=== PATIENT | male | born 1995 | race Caucasian/White ===

== ENCOUNTER 2023-12-01 19:14 | Emergency (ER) | payer OTHER, SELFPAY ==
[2023-12-01 20:06] VITALS: BP 145/95; PULSE 74; RESP 16; TEMP 37.1; O2SAT 99
--- NOTE | 2023-12-01 20:15 | DI.RAD_ITS ---
Exam(s) XR ANKLE RT COMPLETE XR TIB/FIB RT EXAM: XR ANKLE RT COMPLETE CLINICAL HISTORY: lateral ankle pain, r/o fx. TECHNIQUE: 2D digital imaging was performed. Three views. COMPARISON: CR,XR XR TIB/FIB RT from 12/01/2023 FINDINGS: BONES: Oblique fracture through the lateral malleolus extending to the level of the ankle mortise. A pproximately 5 millimeters of displacement posteriorly. No medial malleolar fracture is seen. No ad ditional fractures seen more proximally in the tibia and fibula. No talar dome defect. No bony dest ructive lesion is seen. JOINTS: Widening of the medial ankle mortise. The knee is unremarkable as visualized. SOFT TISSUE: Marked soft tissue swelling around the lateral malleolus. IMPRESSION: Lateral malleolar fracture with widening of the medial ankle mortise. DATA REPOSITORY: RADIATION DOSE DELIVERED:
--- NOTE | 2023-12-01 20:28 | ED.GENADUL_ITS ---
Discharge Plan Disposition Patient Disposition: Home Discharge Details Clinical Impression: Fracture of right fibula Primary Care Provider: Cornelius Deng ED Provider: Fletcher Pritchard Home Meds and New Rx's Prescriptions: No Action albuterol sulfate 2.5 MG/3 ML solution for nebulization 1 vial Inhalation Q4H PRN Qty: 1 fluticasone propion-salmeterol [Advair HFA] 8 GM HFA aerosol inhaler 2 puff Inhalation BID Qty: 1 Rx Instructions: take 2 puffs with a spacer 2 times per day. fluticasone propionate 16 GM spray,suspension 2 spray NS DAILY Qty: 1 albuterol sulfate [ProAir HFA] 8.5 GM HFA aerosol inhaler 2 puff Inhalation Q4H PRN Qty: 1 loratadine 10 MG tablet 10 mg PO DAILY Qty: 30 Rx Instructions: take 1 tab daily epinephrine [EpiPen 2-Bhaskar] 0.3 MG/0.3 ML auto-injector 1 dose IM PRN Qty: 1 Discharge Instructions Instructions: Ankle Fracture (ED) Additional Instructions: At this time your fibula is fractured at the bottom component. There is a chance that this may need operative management. Please follow-up closely with orthopedics to have a repeat evaluation and x-ray. Please remain nonweightbearing for the next week, and then gradually apply minimal weight with your crutches. Please take 800 mg of Motrin every 6 hours and 1000 mg of Tylenol every 6 hours for the next 2 to 3 days. These are the maximum doses. Please continue to apply ice to the swollen and tender area to help with swelling. Keep it elevated as often as possible. If you notice any worsening of your symptoms, or any new symptoms such as vomiting, diarrhea, fever, chills, shortness of breath, chest pain, numbness, weakness, or fainting , please return immediately to the emergency department for reevaluation. Please follow up with your primary care provider as soon as possible for reassessment and reevaluation. As always, it was a pleasure participating in your medical care today. Stand Alone Forms: Work Release Referrals: Ammon Leslie MD [ [facility] STAFF PHYSICIAN] - Cornelius Deng [Primary Care Provider] - Desmond Islas MD [ [facility] STAFF PHYSICIAN] - Discharge Data Discharge Date/Time-TO BE ENTERED AT DEPARTURE: 12/01/23 22:19 Medical Decision Making 27-year-old male who the past medical history of reactive airway disease presents today for evaluation of right ankle pain. Patient was walking, slipped on his phone, heard a pop in his ankle and had immediate pain about 1 hour prior to arrival. He came to the ER for further assessment. Pain is made worse with movement. He admits to swelling. He denies numbness or tingling. Pain is localized in the right lateral ankle. It travels slightly proximally from there. No other complaints at this time. No other trauma or damage. Exam demonstrates a swollen lateral malleolus, pain with movement. Range of m otion limited secondary to pain. No numbness or tingling. Distal vascular exam demonstrates brisk capillary refill. Radial pulse +2 bilaterally, dorsalis pedis and posterior tibial pulse +2 bilaterally. Suspect fracture, will get x- ray, give Tylenol and Motrin. Apply ice. 3:06 AM X-ray demonstrates a distal fibular fracture. Walking boot was applied, crutches given. Recommendations for nonweightbearing for the next week, then gradual transition to light weightbearing. Will place referral with orthopedics for further outpatient management. Patient remains neurovascularly intact. Christopher l give recommendations for continued NSAIDs, ice, and elevation at home. Will give 4 tablets of a pain pill for use at home if needed. Discussed red flags for which to return. I have extensively reviewed the treatment plan and discharge instructions with the patient. I have addressed all patient concerns at this time. The patient was made aware of what symptoms to monitor for that would warrant a return to the emergency department. Discussed the plan with the patient, they demonstrate verbal understanding and agreement with our assessment and plan at this time. The documentation in this chart was dictated using Buddy dictation software. Please excuse any dictation errors. FINDINGS: Bones/joints: Acute minimally displaced oblique fracture through distal fibular shaft. No subluxation. Soft tissues: Soft tissue swelling is demonstrated posterolaterally about distal fibula. IMPRESSION: Acute fibular fracture. Thank you for allowing us to participate in the care of your patient. Dictated and Authenticated by: Suresh Huston DO 12/01/2023 9:26 PM Eastern Time ([place] & [place]) FINDINGS: Bones/joints: Acute fracture of distal fibula. Tibia is intact. No subluxation. Soft tissues: Soft tissue swelling posterolaterally about distal fibula. IMPRESSION: Acute fracture of distal fibula. Thank you for allowing us to participate in the care of your patient. Dictated and Authenticated by: Suresh Huston DO 12/01/2023 9:28 PM Eastern Time ([place] & [place]) HPI General Date/Time Provider Initiated Documentation: 12/01/23 20:25 . HPI Narrative: 27-year-old male who the past medical history of reactive airway disease presents today for evaluation of right ankle pain. Patient was walking, slipped on his phone, heard a pop in his ankle and had immediate pain about 1 hour prior to arrival. He came to the ER for further assessment. Pain is made worse with movement. He admits to swelling. He denies numbness or tingling. Pain is localized in the right lateral ankle. It travels slightly proximally from there. No other complaints at this time. No other trauma or damage. Related Data Home Medications Medication Instructions Recorded Confirmed albuterol sulfate 2.5 mg/3 mL 1 vial inhalation Q4H PRN ##1 04/19/14 (0.083 %) solution for nebulization fluticasone propionate 115 2 puff inhalation BID ##1 03/07/15 mcg-salmeterol 21 mcg/actuation HFA inhaler (Advair HFA) fluticasone propionate 50 2 spray NS DAILY #1 spray 04/21/15 mcg/actuation nasal spray,suspension albuterol sulfate 90 mcg/actuation 2 puff inhalation Q4H PRN ##1 06/02/15 aerosol inhaler (ProAir HFA) loratadine 10 mg tablet 10 mg PO DAILY #30 tab-caps 06/06/15 epinephrine 0.3 mg/0.3 mL 1 dose IM PRN ##1 07/18/15 injection, auto-injector (EpiPen 2-Bhaskar) Allergies Allergy/AdvReac Type Severity Reaction Status Date / Time peanut Allergy Unverified 01/23/16 11:25 General Stated Complaint: Orthopedic MATT: 3 Review of Systems All systems reviewed & are unremarkable except as noted in HPI and below PFSH All Active Problems (Updated 12/01/23 @ 22:14 by Fletcher Pritchard DO) Fracture of right fibula (Acute) Rib pain (Acute) Social History Smoking/Tobacco Use Status: Current-Occasional Smoking risk assessment performed?: Yes Alcohol Intake: current Alcohol Intake frequency: a few times a month Drug use: Occasionally Do you feel safe at home: Yes Do you feel safe in your relationship?: Yes Exam Narrative Exam Narrative: 1.Const: Well-nourished, Well-developed, appearing stated age 2.Eyes: PERRL, no conjunctival injection, and symmetrical lids. 3.ENT: Atraumatic external nose and ears. Moist MM. Neck: Symmetric, trachea midline, No thyromegaly. 4.CVS: +S1/S2, No murmurs or gallops. Peripheral pulses 2+ and equal in all extremities. Brisk capillary refill in all extremities. 5.RESP: Unlabored respiratory effort. Clear to auscultation bilaterally. No wheezes rales or rhonchi 6.GI: Soft, Nontender/Nondistended, No hepatosplenomegaly. No guarding or rebound. 7.MSK: Patient's right ankle demonstrates notable swelling and edema, tenderness over the lateral aspect. No tenderness over the medial aspect. No tenderness o scooter the arch of the foot at the calcaneus. Minimal referred pain down to the ankle with squeezing of the proximal and mid fibula. No tenderness over the knee. No calf tenderness 8.Skin: Warm, Dry. No rashes or lesions. 9.Neuro: vacuum system tester II-XII grossly intact. Sensation grossly intact, no focal neurologic deficits. 10.Psych: (AAO) x3. Appropriate mood and affect Course Vital Signs Vital signs: Vital Signs Temperature 37.1 C 12/01/23 20:06 Pulse 74 12/01/23 20:06 Respiratory Rate 16 12/01/23 20:06 Blood Pressure 145/95 H 12/01/23 20:06 Pulse Oximetry 99 12/01/23 20:06 Temperature 37.1 C 12/01/23 20:06 Pulse 74 12/01/23 20:06 Respiratory Rate 16 12/01/23 20:06 Respiratory Effort Normal 12/01/23 20:09 Blood Pressure 145/95 H 12/01/23 20:06 Blood Pressure Position Sitting 12/01/23 20:06 Pulse Oximetry 99 12/31/23 20:06 Oxygen Delivery Method Room Air 12/01/23 20:06 Oxygen Flow Rate 0 12/01/23 20:06 Pain Level 8 12/01/23 20:06 PAWSS Have you Been Recently Intoxicated or Drunk Within the Last 30 days?: No Result: 0
[2023-12-01] MEDS: Acetaminophen 500 MG TAB 1000 MG PO (20:38)
[2023-12-01] MEDS: Ibuprofen 800 MG TAB PO (20:39)
--- NOTE | 2023-12-01 21:27 | DI.VRAD_ITS ---
PROCEDURE INFORMATION: Exam: XR Right Ankle Exam date and time: 12/01/2023 8:58 PM Age: 27 years old Clinical indication: Right; Patient HX: RT ankle pain TECHNIQUE: Imaging protocol: Radiologic exam of the right ankle. Views: 3 or more views. COMPARISON: No relevant prior studies available. FINDINGS: Bones/joints: Acute minimally displaced oblique fracture through distal fibular shaft. No subluxation. Soft tissues: Soft tissue swelling is demonstrated posterolaterally about distal fibula. IMPRESSION: Acute fibular fracture. Dictated and Authenticated by: Suresh Huston MD. Ordering:PAUL Bynum MD
--- NOTE | 2023-12-01 21:28 | DI.VRAD_ITS ---
PROCEDURE INFORMATION: Exam: XR Right Tibia and Fibula Exam date and time: 12/01/2023 9:04 PM Age: 27 years old Clinical indication: Injury or trauma; Fall; Blunt trauma; Lower leg; Right; Injury date: 12/01/23 TECHNIQUE: Imaging protocol: Radiologic exam of the right tibia and fibula. Views: 2 views. COMPARISON: CR XR ANKLE RT COMPLETE 12/01/2023 8:58 PM FINDINGS: Bones/joints: Acute fracture of distal fibula. Tibia is intact. No subluxation. Soft tissues: Soft tissue swelling posterolaterally about distal fibula. IMPRESSION: Acute fracture of distal fibula. Dictated and Authenticated by: Suresh Huston MD. Ordering:PAUL Bynum MD
== END 2023-12-01 22:19 | disposition home or self-care (01) ==
PROVIDERS: Emergency Provider Student in an Organized Health Care Education/Training Program; PCP Family Medicine
DX: S82.64XA Nondisplaced fracture of lateral malleolus of right fibula, initial encounter for closed fracture (principal); R07.81 Pleurodynia; W18.41XA Slipping, tripping and stumbling without falling due to stepping on object, initial encounter
CPT/HCPCS: 27750; 73590; 73610

== ENCOUNTER 2023-12-05 09:00 | Day surgery (SDC) | payer OTHER, SELFPAY ==
[2023-12-05] VITALS (14 sets, daily range): BP systolic 111–168; BP diastolic 65–97; PULSE 59–78; RESP 13–23; TEMP 36–37; O2SAT 96–98; BMI 30.5
--- NOTE | 2023-12-05 07:31 | W.PM.DSUDISC ---
Date of service: 12/05/23 Time of Service: 14:30 Discharge Plan Disposition Patient Disposition: Home Condition: Stable Discharge Details Attending Provider: Ammon Leslie Primary Care Provider: Cornelius Deng Home Meds and New Rx's Prescriptions: New aspirin 81 mg tablet,delayed release (DR/EC) 81 mg PO DAILY 14 Days Qty: 14 0RF naproxen 250 mg tablet 250 - 500 mg PO BID PRN (Reason: Moderate pain) Qty: 40 0RF oxycodone 5 mg tablet 5 - 10 mg PO Q4H PRN (Reason: Moderate to severe pain) Qty: 9 0RF Continued triamcinolone acetonide 0.1 % cream 1 applic topical DAILY albuterol sulfate 2.5 MG/3 ML solution for nebulization 1 vial Inhalation Q4H PRN Qty: 1 fluticasone propion-salmeterol [Advair HFA] 8 GM HFA aerosol inhaler 2 puff Inhalation BID Qty: 1 Rx Instructions: take 2 puffs with a spacer 2 times per day. fluticasone propionate 16 GM spray,suspension 2 spray NS DAILY Qty: 1 albuterol sulfate [ProAir HFA] 8.5 GM HFA aerosol inhaler 2 puff Inhalation Q4H PRN Qty: 1 loratadine 10 MG tablet 10 mg PO DAILY Qty: 30 Rx Instructions: take 1 tab daily epinephrine [EpiPen 2-Bhaskar] 0.3 MG/0.3 ML auto-injector 1 dose IM PRN Qty: 1 Discharge Instructions Additional Instructions: Surgery: Right ankle open reduction internal fixation Activity: Nonweightbearing right ankle with crutches. May rest splint gently on ground while standing. Strict elevation to minimize swelling and discomfort. Wiggle toes to improve circulation and prevent stiffness. Physical therapy prescription will be provided on follow-up if needed. Prescriptions: Aspirin 81 mg take 1 daily to prevent a blood clot for 2 weeks Naproxen 250 mg take 1-2 every 12 hours with a meal as needed for moderate pain Oxycodone 5 mg take 1-2 every 4-6 hours as needed for severe pain You may use [id number] Tylenol (acetaminophen) as needed for mild pain. These pain medications may be taken all at once or in different combinations as needed. Also, recommend Colace (docusate) as a stool softener as surgery and pain medicine cause constipation. You may try [id number] diphenhydramine (Benadryl) 25-50 mg nightly as a sleep aid Dressings: Leave splint and dressing in place until follow-up. Keep clean and dry at all times. Follow-up: 10-[address] Leslie You may take off the leg compression stockings this evening at home. You may also leave them on a few days longer if you have a history of leg swelling or edema. Let us know right away if you develop any redness, drainage, fevers, chest pain, or trouble breathing. Do not drink alcohol or drive for at least 24 hours after anesthesia. Please call the office during business hours with any questions or concerns. Stand Alone Forms: Anesthesia Discharge Inst., Brian.Nerve Block Instructions, Parker Valadez (DSU), Use of Axillary Crutches Discharge Orders Discharge Orders: Discharge Order (Routine); Ordered 12/05/23 Ordered By: Trev Matamoros Discharge Data Discharge Date/Time-TO BE ENTERED AT DEPARTURE: 12/05/23 15:00 DS: Diagnosis Discharge Diagnosis (1) Closed fracture of right distal fibula: Status: Acute
--- NOTE | 2023-12-05 09:00 | DI.RAD_ITS ---
Exam(s) XR ANKLE RT 2V EXAM: XR ANKLE RT 2V CLINICAL HISTORY: right ankle fracture TECHNIQUE: 2D and realtime digital imaging was performed. CONTRAST MATERIAL: Refer to procedure report. COMPARISON: CR,XR XR ANKLE RT COMPLETE from 12/01/2023 FINDINGS: Fluoroscopy was provided for Dr. Leslie during the performance of a reduction and internal fixation of the distal right fibular fracture. Please refer to the procedure report for complete details. Ka,r=0.38 mGy IMPRESSION: RADIATION DOSE DELIVERED:
--- NOTE | 2023-12-05 09:25 | ROE_ITS ---
Date of service: 12/05/23 Time of Service: 10:00 Operative Note Operative Note DATE OF PROCEDURE: 12/05/23 PRE-OP DIAGNOSIS: Right ankle fracture POST-OP DIAGNOSIS: same PROCEDURE: Right ankle ORIF, distal fibula, CPT #01870 SURGEON: Ammon Leslie SUPERVISOR PURIFICATION: Trev Matamoros ANESTHESIA TYPE: Local By Surgeon, General LMA/ETT and Primary Nerve Block Refer to Anesthesia Record ESTIMATED BLOOD LOSS: 10 TOURNIQUET TIME: 0 COMPLICATIONS: None Patient was transported to: PACU Patient's condition: stable Implants: Synthes 8-hole 1/3 tubular plate with 3x proximal 3.5mm cortex screw, 3x distal 4.0mm cancellous screws, and 1x 3.5mm lag screw Indications: Please see complete medical record for details. Procedure Description: In the operating room, general anesthesia was induced. The patient was positioned supine on the operating room table. All bony prominences were well- padded. Preoperative antibiotics were administered. The right ankle was prepped and draped in the usual sterile fashion. The correct patient, proc edure, and side of the procedure were all verified prior to incision. The distal fibular fracture was localized and the lateral incision preinjected with 30 cc 0.25% bupivacaine with epinephrine. Stress view was obtained and only demonstrated mild lateral talar shift. The direct lateral approach the distal fibula was used taking care to protect soft tissues, retract neurovascular structures and tendons away from the bone. The fracture site was readily encountered, exaggerated, and debrided of clot material. Length and rotation were then obtained grossly and with bone clamps. The fracture was confirmed to be well reduced using fracture cruz posterior superiorly and anteriorly inferiorly. Periosteum was bluntly elevated about the lateral fibula for planned plate placement. An appropriate length plate was selected to accommodate fixation proximally and distally to the oblique fracture. Bone clamps were then adjusted to allow for central anterior to posterior lag screw, which was drilled bicortically, glide hole, and screw placed with good fixation strength. Plate was then contoured to match patient anatomy, applied to the lateral fibula, secured proximal to the fracture with a 3.5 mm bicortical cortex screw, slightly rotated to the best position, this screw tightening, and then secured distally with a 4.0 mm just short of bicortical cancellous screw. The remaining distal screws were predrilled just penetrated the far cortex but not into the talus and then filled with 4.0 mm cancellous screws. The remaining 2 proximal screws were predrilled bicortically and filled with 3.5 mm cortex screws with the most proximal screw diverging from the construct and working length prevent stress riser. Fluoroscopic images showed appropriate ankle reduction hardware placement. External rotation stress view were negative for instability. The fixation was solid about the fracture. The wound was copiously irrigated normal saline. Soft tissues were allowed to retract over the hardware. Subcutaneous tissue was closed with 2-0 Monocryl buried interrupted. Skin was closed using 3-0 nylon horizontal mattresses. Xeroform applied over the incision followed by gauze and ABD and the ankle wrapped in sterile Sof-Rol. A short leg AO plaster splint was then applied to the extremity maintaining the foot and ankle in neutral position. The patient awoke from anesthesia without complication and was transferred to the recovery room in a stable condition.
--- NOTE | 2023-12-05 09:42 | W.ANESPRE ---
General Info Date of Service Date Performed: 12/05/23 Height: 5 ft 10.5 in Weight: 98 kg Body Mass Index (BMI): 30.5 Surgical Procedure: Operation Date: 12/05/23 09:10 Proposed Procedure Side Surgeon p Ankle ORIF Right Ammon Leslie MD Meds Allergies and Home Medications Allergies Allergy/AdvReac Type Severity Reaction Status Date / Time peanut Allergy Severe Anaphylaxis Unverified 12/05/23 09:25 shellfish derived AdvReac Hives Unverified 12/05/23 09:28 Home Medication Medication Instructions Recorded albuterol sulfate 2.5 mg/3 mL 1 vial inhalation Q4H PRN ##1 04/19/14 (0.083 %) solution for nebulization fluticasone propionate 115 2 puff inhalation BID ##1 03/07/15 mcg-salmeterol 21 mcg/actuation HFA inhaler (Advair HFA) fluticasone propionate 50 2 spray NS DAILY #1 spray 04/21/15 mcg/actuation nasal spray,suspension albuterol sulfate 90 mcg/actuation 2 puff inhalation Q4H PRN ##1 06/02/15 aerosol inhaler (ProAir HFA) loratadine 10 mg tablet 10 mg PO DAILY #30 tab-caps 06/06/15 epinephrine 0.3 mg/0.3 mL 1 dose IM PRN ##1 07/18/15 injection, auto-injector (EpiPen 2-Bhaskar) triamcinolone acetonide 0.1 % 1 applic topical DAILY 12/03/23 topical cream Current Visit Medications: Current Medications Generic Name Dose Route Start Last Admin Trade Name Freq PRN Reason Stop Dose Admin Ringer's Solution 1,000 mls @ 30 mls/hr 12/05/23 06:00 IV 12/05/23 23:59 INFUSION GILMER Cefazolin Sodium/Dextrose 2 gm in 50 mls @ 100 mls/hr 12/05/23 06:00 Ancef Duplex IVPB 12/05/23 23:59 PREOP GILMER IV Miscellaneous Supplies 1 each 12/05/23 06:00 Iv Access IV 12/05/23 23:59 DIRECTED GILMER Oxycodone HCl 0 mg 12/05/23 07:31 Oxycodone 5 Mg Tab PO 01/04/24 07:30 Q3H PRN PRN Pain Sodium Chloride 0 ml 12/05/23 06:00 Normal Saline Flush 10 Ml Syr IV 12/05/23 23:59 PRN PRN Sodium Chloride 0 ml 12/05/23 06:00 Normal Saline 10 Ml Vial IJ 12/05/23 23:59 DIRECTED PRN Sterile Water 0 ml 12/05/23 06:00 Water,Injection,Sterile 10 Ml Vial IJ 12/05/23 23:59 DIRECTED PRN PFSH Active Problems Active Problems: Problem Status Onset Code Closed fracture of right distal fibula 12/01/23 S82.831A Rib pain R07.81 Medical History Medical History (Updated 12/04/23 @ 12:20 by Ahmet Cool) Environmental allergies Asthma Surgical History Surgical History (Updated 12/04/23 @ 12:20 by Ahmet Cool) Hx of cholecystectomy History of nasal surgery Nasal polyps removed Tobacco Smoking/Tobacco Use Status: Never Alcohol Alcohol Intake: current Alcohol intake frequency: a few times a month Substance Use Substance use: Socially Substance use type: marijuana Vital Signs and Lab Results Vital Signs Most Recent Vital Signs in EMR: Most Recent Vital Signs Temp Pulse Resp BP Pulse Ox 36 C L 78 18 156/92 H 98 12/05/23 09:30 12/05/23 09:30 12/05/23 09:30 12/05/23 09:30 12/05/23 09:30 Lab Results Blood Type / Crossmatch: No Data to Display Complete Blood Count: No Data to Display Complete Metabolic Panel: No Data to Display Liver Function Panel: No Data to Display Coagulation Panel: No Data to Display Cardiac Panel: No Data to Display Arterial Blood Gas: No Data to Display Venous Blood Gas: No Data to Display Pancreas Panel: No Data to Display Thyroid Panel: No Data to Display Infectious Disease: No Data to Display Blood Cultures: No Data to Display Toxicology Panel: No Data to Display Anesthesia Assessment and Plan Anesthesia History Personal History: No History of Anesthesia Complications Family History: No Family History of Anesthesia Complications Exercise Tolerance Exercise Tolerance: Metabolic Equivalents>4 Pertinent Negatives Pertinent Negatives: No Symptoms of GERD and No Major Cardiovascular Symptoms or Complaints Cardiac & Pulmonary Exam Cardiac Exam: Normal S1/S2 Heart Sounds Pulmonary Exam: Clear Bilateral Breath Sounds Implantable Cardiac Device Does patient have a Pacemaker or an ICD?: No Airway Exam Known Difficult Airway: No Mallampati Class: 1 Mouth Opening: Normal (> 3cm) Thyromental Distance: Greater than 3 cm Neck Range of Motion: Full ROM Neck Circumference: Normal Teeth Condition: Normal Dentition ASA Classification ASA Score: ASA 2 Emergency Case?: No NPO Status NPO Status: NPO Clears >2 hours, Solids >8 hours Anesthesia Plan Resuscitation Status: Full Code Anesthesia Technique: General Anesthesia Airway Planned: LMA Pain Management: Surgeon and patient request nerve block Monitors Used: Standard Monitors Preoperative Comments:: Right eye is quite red in Oreos. States he slept poorly and has been rubbing eye.
[2023-12-05] MEDS: Lactated Ringers 1,000 ML 30 ML IV (10:15)
[2023-12-05] MEDS: ceFAZolin 2 GM/50 ML BAG IVPB (10:19)
--- NOTE | 2023-12-05 10:51 | W.ANESNERVE ---
Nerve Block Single Injection Procedure Date and Time Date Performed: 12/05/23 Procedure Start: 10:02 Location Where Procedure Performed Procedure Location: Day Surgery Unit Reason Performed: Postoperative Analgesia Requesting Provider: Ammon Leslie Timeout Performed Timeout Performed: Yes Monitoring Used ECG, Blood Pressure, SpO2 and See EMR for corresponding vital signs Sterility Sterility: Hand Hygiene, Surgical Cap, Surgical Mask, Sterile Gloves and Chlorhexidine Sedation Given During Procedure Sedation Given (Indicate Dose Given): Versed IV Dose:: 2mg Patient Mental Status Patient Mental Status: Sedate with meaningful communication Nerve Block 1st Nerve Block: Laterality: Right Block Type: Popliteal Sciatic Ultrasound Image Saved?: Yes Needle / Catheter Used: 100mm SonoPlex II Local Anesthetic Bolus (Indicate Dose Given): Lidocaine used for local infiltration of skin, Injected in 3-5ml increments after negative blood aspiration, Bupivacaine 0.5% Dose:: 10ml and Exparel Dose:: 10ml Additives (Indicate Dose Given): Normal Saline (5ml) Ultrasound: Sterile probe cover and gel used Nerve Stimulator: Not Used (Due to ongoing pain/fracture. Pt. very sensitive to any movement.) Paresthesia: None Procedure Tolerated: No Complications and Patient tolerated well Procedure Outcome: Successful Performed By: Adria Chanel
[2023-12-05] MEDS: Tranexamic Acid 1,000 MG/10 ML VIAL 1000 MG (11:02)
[2023-12-05] MEDS: Bupivacaine 0.25% Pres-Free 30 ML VIAL (11:15)
[2023-12-05] MEDS: HYDROmorphone 2 MG/ML SYR IVP ×4 (12:30→13:14)
[2023-12-05] MEDS: Normal Saline 10 ML VIAL IJ (12:31)
[2023-12-05] MEDS: fentaNYL 100 MCG/2 ML VIAL IVP ×2 (12:40→12:56)
--- NOTE | 2023-12-06 10:44 | W.ANESPOSTOP ---
Postoperative Evaluation Date, Time and Location Date Performed: 12/06/23 Time Performed: 10:44 Patient Location: Other (Home) Vital Signs Most Recent Imported Vital Signs: Most Recent Vital Signs Temp Pulse Resp BP Pulse Ox 36.4 C L 72 16 120/65 98 12/05/23 14:16 12/05/23 14:16 12/05/23 14:16 12/05/23 14:16 12/05/23 14:16 Pain Score Most Recent Pain Score: Most Recent Pain Score Pain Level 4 12/05/23 14:16 Assessment Mental Status: Awake (Alert & Oriented to Patient Baseline) Airway and Respiratory Function: Patent airway with normal (patient baseline) respiratory exam Cardiovascular Function: Hemodynamically Stable Hydration Status: Adequately Hydrated Nausea & Vomiting: No Nausea or Vomiting Pain: Pt. Denies Any Pain Peripheral Nerve Block: Regional nerve block not resolved at time of post operative discharge Postoperative Comments:: I did not see Shashank before discharge. I did see him in PACU as he was receiving analgesia. During his phone call this morning, he describes generalized ankle numbness and tingling which he describes as a 3/10. He has not taken any pain medications and there are no concerns. Discussed the importance of seeing patients before discharge with DSU.
== END 2023-12-05 15:00 | disposition home or self-care (01) ==
LOC: SUR 09:03
PROVIDERS: PCP Family Medicine; Visit Provider Student in an Organized Health Care Education/Training Program
PROC: (CPT 27792; principal; 2023-12-05 09:00)
DX: S82.831A Other fracture of upper and lower end of right fibula, initial encounter for closed fracture (principal); W18.41XA Slipping, tripping and stumbling without falling due to stepping on object, initial encounter
CPT/HCPCS: 27792; 76000; 76942; 73600; 73610; C9290; J0665; J0690; J1100; J1170; J1885; J2250; J2405; J2704; J3010

== ENCOUNTER 2023-12-18 14:30 | Outpatient (CLI) | payer OTHER, SELFPAY ==
--- NOTE | 2023-12-18 14:14 | DI.RAD_ITS ---
Exam(s) XR ANKLE RT 2V EXAM: XR ANKLE RT 2V INDICATION: F/U ANKLE ORIF. COMPARISON: CR,XR XR ANKLE RT COMPLETE from 12/01/2023 XA XR ANKLE RT 2V from 12/05/2023 TECHNIQUE: 2D digital imaging was performed. Two views. FINDINGS: Hardware is again noted along the distal fibula for fracture fixation. There has been no change in f racture or hardware alignment. No new findings. DATA REPOSITORY: RADIATION DOSE DELIVERED:
== END 2023-12-18 14:31 | disposition home or self-care (01) ==
LOC: DIORS 14:30
PROVIDERS: PCP Family Medicine; Visit Provider Student in an Organized Health Care Education/Training Program
DX: S82.831D Other fracture of upper and lower end of right fibula, subsequent encounter for closed fracture with routine healing (principal); X58.XXXD Exposure to other specified factors, subsequent encounter
CPT/HCPCS: 73600

== ENCOUNTER 2024-01-15 15:39 | Outpatient (CLI) | payer OTHER, SELFPAY ==
--- NOTE | 2024-01-15 15:29 | DI.RAD_ITS ---
Exam(s) XR ANKLE RT COMPLETE EXAM: XR ANKLE RT COMPLETE CLINICAL HISTORY: F/U FRACTURE. TECHNIQUE: 2D digital imaging was performed. Three images were obtained. AP, lateral and oblique vi ews were obtained. COMPARISON: CR,XR XR ANKLE RT COMPLETE from 12/01/2023 CR XR ANKLE RT 2V from 12/18/2023 FINDINGS: BONES: There are stable post operative changes present. The fibular fractures partially visualized o n the lateral view posterior to the orthopedic hardware. No new fracture or dislocation. JOINTS: The joint spaces are well maintained. SOFT TISSUE: Normal. IMPRESSION: Stable postoperative changes. DATA REPOSITORY: RADIATION DOSE DELIVERED:
== END 2024-01-15 15:40 | disposition home or self-care (01) ==
LOC: DIORS 15:39
PROVIDERS: PCP Family Medicine; Visit Provider Student in an Organized Health Care Education/Training Program
DX: S82.831D Other fracture of upper and lower end of right fibula, subsequent encounter for closed fracture with routine healing (principal); X58.XXXD Exposure to other specified factors, subsequent encounter
CPT/HCPCS: 73610

== ENCOUNTER 2024-03-11 15:58 | Outpatient (CLI) | payer OTHER, SELFPAY ==
--- NOTE | 2024-03-11 14:15 | DI.RAD_ITS ---
Exam(s) XR ANKLE RT COMPLETE EXAM: XR ANKLE RT COMPLETE CLINICAL HISTORY: F/U FRACTURE. TECHNIQUE: 2D digital imaging was performed. Three views. COMPARISON: CR,XR XR ANKLE RT COMPLETE from 12/01/2023 CR XR ANKLE RT 2V from 12/18/2023 CR XR ANKLE RT COMPLETE from 01/15/2024 FINDINGS: BONES: There has been no change in the fracture or hardware alignment. The distal fibular fracture i s no longer visible. No bony destructive lesion is seen. JOINTS: The ankle mortise is normally aligned. SOFT TISSUE: Normal. IMPRESSION: Stable hardware alignment. DATA REPOSITORY: RADIATION DOSE DELIVERED:
== END 2024-03-11 15:59 | disposition home or self-care (01) ==
LOC: DIORS 15:58
PROVIDERS: PCP Family Medicine; Visit Provider Student in an Organized Health Care Education/Training Program
DX: S82.831D Other fracture of upper and lower end of right fibula, subsequent encounter for closed fracture with routine healing (principal); W18.41XD Slipping, tripping and stumbling without falling due to stepping on object, subsequent encounter
CPT/HCPCS: 73610